=== PATIENT | female | born 1980 | race African-American/Black ===

== ENCOUNTER 2017-08-14 07:42 | Outpatient (CLI) | payer OTHER ==
[~2017-08-14 07:42] MED LIST: ANTIVERT12.5 MG PO; BETAMETHASONE D60 ML TP; Coreg PO; DHS TAR120 ML TP; FUROSEMIDE20 MG PO; GILTUSS TR TAB1 EACH; HYDRALAZINE HCL50 MG PO; INTEGRA PLUS C1 EACH PO; KAYEXALATE15 GM/60 M PO; KETO10TA2 PO; LOPRESSOR HCT 11 TAB; LOPRESSOR HCT 11 TAB PO; MINOCYCLINE HCL50 M1 PO; NIFE60TA3 PO; ORPH100T PO; PLAQUENIL 200MG; PLAQUENIL 200MG PO; PREDNISONE10 MG PO; PREDNISONE20 MG PO; PROCRIT SUBCUTANEO; TRAM1TAB98 PO; VANCOCIN HCL 500 MG IV; VASOTEC10 MG; VASOTEC10 MG PO
== END 2017-08-14 09:00 | disposition home or self-care (01) ==
LOC: NUCLEAR 07:42
DX: I34.0 Nonrheumatic mitral (valve) insufficiency (principal)